=== PATIENT | female | born 1935 | race Caucasian/White ===

== ENCOUNTER 2019-02-25 22:26 | Inpatient (IN) ==
--- OUTSIDE RECORDS SUMMARY | 2019-02-25 22:30 | External Medical Summary | Continuity of Care Document ---
:1935 Author Name Benny Crowder, Provider Address Unavailable Unavailable , Care Team Providers Name Role Phone Unavailable Unavailable Unavailable SAIDA RUCKER Unavailable Unavailable Problems Active medical history not documented Allergies and Adverse Reactions No Known Drug Allergies (Allergy) Medications Aspirin 81 MG TABS , M.D. Refills: 0 Calcium TABS , M.D. Refills: 0 Tenormin TABS , M.D. Refills: 0 Procedures Procedures not documented Immunizations Immunizations not documented Plan of Treatment Planned Observations Planned Goals not documented Results No Known Results Results not documented
[2019-02-25 23:08] LABS: Basophils # (auto) 0.03 K/uL (0-0.2); Basophils % (auto) 0.2 %; Eosinophils # (auto) 0.12 K/uL (0-0.5); Eosinophils % (auto) 0.8 %; Hematocrit (blood only) 36.8 % (37-47); Hemoglobin 12.6 g/dL (12.0-16.0); Immature Granulocytes # (auto) 0.04 K/uL (0.00-0.02); Immature Granulocytes % (auto) 0.3 %; Lymphocytes # (auto) 1.35 K/uL (1.2-3.4); Lymphocytes % (auto) 8.6 %; Mean Corpuscular Hgb Conc 34.2 g/dL (32-36); Mean Corpuscular Volume 87.6 fL (80-100); Mean Platelet Volume 9.8 fL (7.4-10.4); Monocytes # (auto) 1.56 K/uL (0.11-0.59); Neutrophils # (auto) 12.57 K/uL (1.4-6.5); Neutrophils % (auto) 80.1 %; Platelet Count 293 K/uL (130-400); RDW Coefficient of Variation 12.8 % (11.5-14.5); RDW Standard Deviation 41.4 fL (36.4-46.3); White Blood Count 15.67 K/uL (4.8-10.8)
[2019-02-25] MEDS ORDERED: SODIUM CHLORIDE 0.9% 1000ML 1,000 ML IV SCH (23:08)
[2019-02-25 23:19] LABS: INR 1.1 (0.9-1.1); Partial Thromboplastin Time 27.1 Seconds (21.0-31.0)
[2019-02-25 23:29] LABS: Albumin Level 3.3 gm/dl (3.4-5.0); BUN Creatinine Ratio 15.9 (10-20); Calcium 9.6 mg/dl (8.5-10.1); Creatinine Clr Calc Pharmacy 29.4 ml/min; Est GFR (African American) 48.4; Est GFR (Non-African American) 41.8
[2019-02-25 23:39] LABS: Albumin Globulin Ratio 0.6 (0.9-2); Bilirubin,Total 0.7 mg/dl (0.2-1); Globulin 5.6 gm/dl (2.5-4.0); Total Protein 8.9 gm/dl (6.4-8.2)
[2019-02-26] MEDS ORDERED: ASPIRIN 325 MG ECTAB PO STA (00:06)
[2019-02-26 00:10] LABS: Influenza A virus by PCR Neg for Influ A (Neg); Influenza B virus by PCR Neg for Influ B (Neg)
[2019-02-26] MEDS ORDERED: SODIUM CHLORIDE 0.9% 500 ML IV SCH (00:15)
[2019-02-26] MEDS ORDERED: BUMETANIDE 1 MG in SYRINGE 0 ML IV ONE (00:30)
[2019-02-26 00:53] LABS: Magnesium 2.1 mg/dl (1.8-2.4)
--- NOTE | 2019-02-26 01:25 | History & Physical Report ---
Date of Service February 26, 2019 Assessment & Plan (1) Acute hypoxemic respiratory failure: Secondary to acute CHF, possible nonischemic cardiomyopathy secondary to possible viral myocarditis Troponin elevation secondary to above S-A node dysfunction status post PPM, patient NSR Hyperlipidemia statin Rx Hyperglycemia rule out DM PCU Supplemental O2 Diuretic Rx TTE, Cardiology consult RE CHF Strict I/Os Daily weights, CHF education Check hemoglobin A1c DVT prophylaxis. Lovenox subcu Full code Patient son requesting updates from providers. Mr. Alden Botello, contact #[phone]. Total critical care time was 40 minutes. History of Present Illness Chief Complaint: Shortness of breath Primary Care Provider: Trisha Sykes, DO History obtained from patient, family, and records. Medical history significant for SSS sp PPM, hypertension, hyperlipidemia. Recent confinement August 2014 for S-A node dysfunction status post PPM. Patient seen at [facility] [place] [facility] office last October 2018 for exertional dyspnea. Symptoms attributed to possible deconditioning from ankle fracture. No congestion on outpatient CXR. Last 3 days patient noted worsening shortness of breath especially on exertion after a flulike illness. No chest pain, no fluid retention. Patient complaining of dry cough symptoms. Patient brought to the emergency room by son. Medical History as above Surgical History : PPM, eye surgery, dental procedure Family History : Lung disease Personal/Social history : Non-smoker, no EtOH intake, retired RN Allergies Allergy/AdvReac Type Severity Reaction Status Date / Time Estrogens Allergy Unknown UNKNOWN Verified 02/25/19 23:38 Sulfa (Sulfonamide Allergy Unknown UNKNOWN Verified 02/25/19 23:38 Antibiotics) Dyazide AdvReac Severe BP UP, Verified 04/16/18 06:47 ANXIOUS hydrochlorothiazide AdvReac Severe BP UP, Verified 02/25/19 23:38 ANXIOUS triamterene AdvReac Severe BP UP, Verified 02/25/19 23:38 ANXIOUS prednisone AdvReac Unknown LIGHTHEADED,"RUBBERY Verified 02/25/19 23:38 LEGS" Home Medications Home Medications Medication Instructions Recorded Confirmed Type amlodipine 2.5 mg PO DAILY 02/25/19 02/25/19 History aspirin 81 mg PO DAILY 02/25/19 02/25/19 History calcium carbonate-vitamin D3 1 tab PO QAM 02/25/19 02/25/19 History [Caltrate 600 + D] lorazepam 0.5 mg PO HS 02/25/19 02/25/19 History metoprolol tartrate 75 mg PO BID 02/25/19 02/25/19 History multivitamin [Multiple Vitamins] 1 tab PO QAM 02/25/19 02/25/19 History omega 3-ihu-mwl-fish oil [Fish Oil] 1 cap PO DAILY 02/25/19 02/25/19 History omeprazole 20 mg PO QAM 02/25/19 02/25/19 History paroxetine HCl 10 mg PO BID 02/25/19 02/25/19 History potassium chloride 10 meq PO QAM 02/25/19 02/25/19 History rosuvastatin 20 mg PO HS 02/25/19 02/25/19 History Past Med/Surg History Medical History High blood pressure (Chronic) Hypokalemia (Acute) Hypomagnesemia (Acute) Hyponatremia (Acute) New onset atrial flutter (Acute) SSS (sick sinus syndrome) (Acute 08/18/14) Tachy-radha syndrome (Acute) Bronchitis Pacemaker Pneumonia Family History Other No significant family history Social History Communication Ability: Effective Beliefs That Will Affect Care: None Current Living Situation: Alone Other Information That Helps Us Care for You: No Feels Safe at Home: Yes Safety Concerns: Feels Safe At This Time Smoking Status: Never smoker Hx Alcohol Use: No Hx Substance Use: No Review of Systems Review of Systems: As per HPI, all 10 systems reviewed, all other ROS negative Physical Exam Physical Exam: GENERAL: Slightly anxious, minimal respiratory distress SKIN: Normal color, warm HEENT: Bushyhead palpebral conjunctivae, no ptosis, moist buccal mucosa, nasal cannul a in place NECK : Supple, no tenderness CHEST : Decreased breath sounds, bibasilar crackles, no tenderness HEART : RRR, no obvious murmurs ABDOMEN: Some distention, nontender EXTREMITIES : No LE swelling/tenderness, no other conspicuous deformities noted NEUROLOGIC : Coherent, no facial asymmetry, no other gross focality Results & Data Vital Signs (Past 12 Hours) Vital Signs Temp Pulse Pulse Resp BP BP Pulse Ox 02/26/19 00:31 68 16 130/68 97 02/25/19 23:56 88 L 02/25/19 22:49 67 18 92 02/25/19 22:31 36.6 C 80 16 130/76 91 Laboratory Results Laboratory Results WBC 15.67 K/uL (4.8-10.8) H 02/25/19 22:51 RBC 4.20 M/uL (4.2-5.4) 02/25/19 22:51 Hgb 12.6 g/dL (12.0-16.0) 02/25/19 22:51 Hct 36.8 % (37-47) L 02/25/19 22:51 MCV 87.6 fL (80-100) 02/25/19 22: MCH 30.0 pg (25-34) 02/25/19 22: MCHC 34.2 g/dL (32-36) 02/25/19 22:51 RDW Std Deviation 41.4 fL (36.4-46.3) 02/25/19: RDW Coeff of Paz 12.8 % (11.5-14.5) 02/25/19 22: Plt Count 293 K/uL (130-400) 02/25/19 22: MPV 9.8 fL (7.4-10.4) 02/25/19 22:51 Immature Gran % (Auto) 0.3 % 02/25/19 22:51 Neut % (Auto) 80.1 % 02/25/19 22:51 Lymph % (Auto) 8.6 % 02/25/19:51 [place] % (Auto) 10.0 % 02/25/19 22:51 Eos % (Auto) 0.8 % 02/25/19:51 Baso % (Auto) 0.2 % 02/25/19: Immature Gran # (Auto) 0.04 K/uL (0.00-0.02) H 02/25/19 22:51 Neut # (Auto) 12.57 K/uL (1.4-6.5) H 02/25/19 22:51 Lymph # (Auto) 1.35 K/uL (1.2-3.4) 02/25/19 22:51 [place] # (Auto) 1.56 K/uL (0.11-0.59) H 02/25/19 22:51 Eos # (Auto) 0.12 K/uL (0-0.5) 02/25/19:51 Baso # (Auto) 0.03 K/uL (0-0.2) 02/25/19 22:51 ESR 87 mm/hr (0-21) H 02/25/19 22:51 PT 11.0 Seconds (9.0-12.0) 02/25/19 22:51 INR 1.1 (0.9-1.1) 02/25/19 22:51 APTT 27.1 Seconds (21.0-31.0) 02/25/19 22:51 PTT Ratio 1.0 02/25/19 22:51 Sodium 135 mmol/L (136-145) L 02/25/19 22:51 Potassium 4.0 mmol/L (3.5-5.1) 02/25/19 22:51 Chloride 102 mmol/L (98-107) 02/25/19 22:51 Carbon Dioxide 24 mmol/L (21-32) 02/25/19 22:51 8.0 (3-11) 02/25/19 22:51 BUN 19 mg/dl (7-18) H 02/25/19 22:51 1.20 mg/dl (0.6-1.2) 02/25/19 22:51 Est Cr Clr Drug Dosing 29.4 ml/min 02/25/19 22:51 Est GFR ( Amer) 48.4 02/25/19 22:51 Est GFR (Non-Af Amer) 41.8 02/25/19 22:51 15.9 (10-20) 02/25/19 22:51 Glucose 121 mg/dl (70-99) H 02/25/19 22:51 Calcium 9.6 mg/dl (8.5-10.1) 02/25/19 22:51 Magnesium 2.1 mg/dl (1.8-2.4) 02/25/19 22:51 0.7 mg/dl (0.2-1) 02/25/19 22:51 AST 77 U/L (15-37) H 02/25/19 22:51 ALT 44 U/L (12-78) 02/25/19 22:51 143 U/L (45-117) H 02/25/19 22:51 6.220 ng/ml (0-0.045) H* 02/26/19 00:33 NT-Pro-B Natriuret Pep 60797 pg/ml (0-1800) H 02/25/19 22:51 8.9 gm/dl (6.4-8.2) H 02/25/19 22:51 3.3 gm/dl (3.4-5.0) L 02/25/19 22:51 5.6 gm/dl (2.5-4.0) H 02/25/19 22:51 0.6 (0.9-2) L 02/25/19 22:51 0.18 ng/ml (0-0.5) 02/25/19 22:51 TSH 4.620 uIu/ml (0.300-4.500) H 02/25/19 22:51 Influenza Type A (PCR) Neg for Influ A (Neg) 02/25/19 23:15 Influenza Type B (PCR) Neg for Influ B (Neg) 02/25/19 23:15 Diagnostic Findings Chest x-ray as per my interpretation congestion EKG as per my interpretation : Rate 65, NSR, T wave inversion inferior leads, MN WP
[2019-02-26] MEDS ORDERED: ACETAMINOPHEN 325 MG TAB PO PRN (02:31)
[2019-02-26] MEDS ORDERED: NITROGLYCERIN SL 0.4 MG/TAB TAB SL PRN (02:31)
[2019-02-26] MEDS ORDERED: PROMETHAZINE HCL 12.5 MG in SODIUM CHLORIDE 0.9% 50 ML IV PRN (02:31)
[2019-02-26] MEDS ORDERED: TRAMADOL HCL 50 MG TABLET PO PRN (02:31)
--- NOTE | 2019-02-26 03:03 | Emergency Department Note ---
Entered by Saud Burns acting as a scribe for History of Present Illness General Chief complaint: Shortness of Breath/Dyspnea Stated complaint: SOB, FEVER, NO APPETITE Time Seen by Provider: 02/25/19 22:55 Source: patient History of Present Illness Onset (ago): day(s) 2 Location: chest Pain Consistency: + constant Quality: + other (SOB) Associated symptoms: + other (Positive for aches, a dry cough, a fever, nausea, loose stools, and a decreased appetite. Negative for rhinorrhea, congestion, a sore throat, vomiting, and black/bloody stools.) The patient is an 83 year old female who presents to the emergency department with complaints of constant SOB beginning two days ago. The patient states that she had some flu-like symptoms beginning three days ago. She notes that her symptoms included aches, a dry cough, a fever of 100.2, nausea, loose stools, and a decreased appetite. She reports that her symptoms worsened two days ago. The patient states that some of her flu-like symptoms resolved, but she notes that she is now SOB. She notes that her SOB is constant and does not worsen when she lies flat. She reports that she also had some SOB a few months ago that was associated with exertion. She denies any rhinorrhea, congestion, sore throat, vomiting, and black/bloody stools. She also denies any known sick contacts. The patient states that she has a pacemaker, and she notes that she also has a history of pneumonia and bronchitis. She reports that she does not have a history of asthma, and she states that she does not smoke cigarettes. Home Medications Home Medications Medication Instructions Recorded Confirmed Type amlodipine 2.5 mg PO DAILY 02/25/19 02/25/19 History aspirin 81 mg PO DAILY 02/25/19 02/25/19 History calcium carbonate-vitamin D3 1 tab PO QAM 02/25/19 02/25/19 History [Caltrate 600 + D] lorazepam 0.5 mg PO HS 02/25/19 02/25/19 History metoprolol tartrate 75 mg PO BID 02/25/19 02/25/19 History multivitamin [Multiple Vitamins] 1 tab PO QAM 02/25/19 02/25/19 History omega 4-kbe-lui-fish oil [Fish Oil] 1 cap PO DAILY 02/25/19 02/25/19 History omeprazole 20 mg PO QAM 02/25/19 02/25/19 History paroxetine HCl 10 mg PO BID 02/25/19 02/25/19 History potassium chloride 10 meq PO QAM 02/25/19 02/25/19 History rosuvastatin 20 mg PO HS 02/25/19 02/25/19 History Allergies Allergy/AdvReac Type Severity Reaction Status Date / Time Estrogens Allergy Unknown UNKNOWN Verified 02/25/19 23:38 Sulfa (Sulfonamide Allergy Unknown UNKNOWN Verified 02/25/19 23:38 Antibiotics) Dyazide AdvReac Severe BP UP, Verified 04/16/18 06:47 ANXIOUS hydrochlorothiazide AdvReac Severe BP UP, Verified 02/25/19 23:38 ANXIOUS triamterene AdvReac Severe BP UP, Verified 02/25/19 23:38 ANXIOUS prednisone AdvReac Unknown LIGHTHEADED,"RUBBERY Verified 02/25/19 23:38 LEGS" Past Med/Surg History Medical History High blood pressure (Chronic) Hypokalemia (Acute) Hypomagnesemia (Acute) Hyponatremia (Acute) New onset atrial flutter (Acute) SSS (sick sinus syndrome) (Acute 08/18/14) Tachy-radha syndrome (Acute) Bronchitis Pacemaker Pneumonia Family History Other No significant family history Social History Communication Ability: Effective Beliefs That Will Affect Care: None Current Living Situation: Alone Other Information That Helps Us Care for You: No Feels Safe at Home: Yes Safety Concerns: Feels Safe At This Time Smoking Status: Never smoker Hx Alcohol Use: No Hx Substance Use: No Review of Systems See HPI for pertinent positives & negatives. and A total of 10 systems reviewed and were otherwise negative Physical Exam Vital Signs Vital Signs - 24 hr 02/25/19 22:31 02/25/19 22:49 02/25/19 23:56 Temperature 36.6 C Temperature Source Oral Sepsis Recent Fever Within 48 Hours No Sepsis Action Taken by Nursing No Action Required Pulse Rate 80 Pulse Rate [Apical] 67 Pulse Rate from SpO2 Sensor Pulse Rhythm [Apical] Pulse Strength [Apical] Respiratory Rate 16 18 Respiratory Effort / Characteristics Non-Labored Respiratory Depth Normal Blood Pressure 130/76 Blood Pressure [Right Arm] Blood Pressure Mean 94 Blood Pressure Mean [Right Arm] Blood Pressure Position Sitting Pulse Oximetry 91 92 88 L Oxygen Delivery Method Room Air Room Air Room Air Oxygen Flow Rate 02/26/19 00:31 02/26/19 00:32 02/26/19 01:01 Temperature Temperature Source Sepsis Recent Fever Within 48 Hours Sepsis Action Taken by Nursing Pulse Rate 62 70 Pulse Rate [Apical] 68 Pulse Rate from SpO2 Sensor 63 70 Pulse Rhythm [Apical] Regular Pulse Strength [Apical] Normal Respiratory Rate 16 21 34 H Respiratory Effort / Characteristics Non-Labored Spontaneous Respiratory Depth Normal Blood Pressure 130/68 149/70 H Blood Pressure [Right Arm] 130/68 Blood Pressure Mean 88 96 Blood Pressure Mean [Right Arm] 88 Blood Pressure Position Pulse Oximetry 97 95 95 Oxygen Delivery Method Nasal Cannula Nasal Cannula Nasal Cannula Oxygen Flow Rate 2 2 2 GENERAL: alert, well appearing, well nourished, no distress, non-toxic EYE EXAM: normal conjunctiva, PERRL and EOM's grossly intact OROPHARYNX: no exudate, no erythema, lips, buccal mucosa, and tongue normal and mucous membranes are dry NECK: supple, no nuchal rigidity, no adenopathy, non-tender LUNGS: Clear to auscultation. Normal chest wall mechanics. Diminished breath sounds, no wheezes, rhonchi, and rales. HEART: no murmurs, S1 normal and S2 normal ABDOMEN: abdomen soft, non-tender, normo-active bowel sounds, no masses, no rebound or guarding. BACK: Back is symmetrical on inspection and there is no deformity, no midline tenderness, no CVA tenderness. SKIN: no rashes and no bruising UPPER EXTREMITIES: upper extremities are grossly normal. FROM, nml pulses b/l. LOWER EXTREMITIES: No pitting edema. FROM, nml pulses b/l. NEURO EXAM: Normal sensorium, cranial nerves II-XII grossly intact, normal speech, no gross weakness of arms, no gross weakness of legs. Course 2259: The patient was evaluated in room B6. A complete history and physical exam was performed. 2347: I reevaluated and updated the patient. With conversation, her oxygen level dropped to 89% on room air. She was placed on 2L nasal cannula. 0001: Per review of office note from 10/15/2018, the patient had an echo done in November,, and had an LVEF of 55-59% and no significant valvular disease at that time. 0011: Upon reevaluation, the patient is stable. I discussed the findings and the treatment plan with the patient. She expresses agreement and understanding. I spoke with Dr. Quinonez of the [facility]. She will be evaluated for further management. Consultations Consultation #1: I [facility] the [facility] He will evaluate the patient for further management. Time: 00:11 Administered Medications Discontinued Medications Aspirin (Ecotrin) 325 mg PO NOW STA Stop: 02/26/19 00:07 Last Admin: 02/26/19 00:30 Dose: 325 mg Documented by: [id number] Sodium Chloride (Nss 1000ml) 1,000 mls @ 500 mls/hr IV .Q2H LORENZO Stop: 02/26/19 01:07 Last Admin: 02/26/19 00:30 Dose: Not Given Documented by: [id number] Sodium Chloride (Nss) 500 mls @ 80 mls/hr IV .Q6H15M LORENZO Stop: 03/28/19 00:14 Last Admin: 02/26/19 00:31 Dose: Not Given Documented by: [id number] Bumetanide 1 mg/ Syringe 4 mls @ 4 mls/min IV NOW ONE Stop: 02/26/19 00:31 Last Admin: 02/26/19 00:30 Dose: 4 mls/min Documented by: [id number] Medical Decision Making Differential Diagnosis Differential diagnosis: Etiologies such as infections, reactive airway disease, COPD, pneumonia, pleural effusion, pulmonary edema, ARDS, pneumothorax, CHF, cardiac ischemia, cardiac tamponade, dysrhythmia, anemia, pulmonary embolism, musculoskeletal, gastrointestinal process, as well as others were entertained. Medical Records Attestation: I reviewed the patient's medical records. Home Medications Current Medication List: was personally reviewed by me Laboratory Data Attestation: I reviewed the patient's lab results. Result diagrams: 02/25/19 22:51 02/25/19 22:51 Lab Results 02/25/19 02/25/19 02/25/19 Range/Units 22:51 22:51 22:51 WBC 15.67 H (4.8-10.8) K/uL RBC 4.20 (4.2-5.4) M/uL Hgb 12.6 (12.0-16.0) g/dL Hct 36.8 L (37-47) % MCV 87.6 (80-100) fL MCH 30.0 (25-34) pg MCHC 34.2 (32-36) g/dL RDW Std Deviation 41.4 (36.4-46.3) fL RDW Coeff of Paz 12.8 (11.5-14.5) % Plt Count 293 (130-400) K/uL MPV 9.8 (7.4-10.4) fL Immature Gran % (Auto) 0.3 % Neut % (Auto) 80.1 % Lymph % (Auto) 8.6 % [place] % (Auto) 10.0 % Eos % (Auto) 0.8 % Baso % (Auto) 0.2 % Immature Gran # (Auto) 0.04 H (0.00-0.02) K/uL Neut # (Auto) 12.57 H (1.4-6.5) K/uL Lymph # (Auto) 1.35 (1.2-3.4) K/uL [place] # (Auto) 1.56 H (0.11-0.59) K/uL Eos # (Auto) 0.12 (0-0.5) K/uL Baso # (Auto) 0.03 (0-0.2) K/uL ESR (0-21) mm/hr PT 11.0 (9.0-12.0) Seconds INR 1.1 (0.9-1.1) APTT 27.1 (21.0-31.0) Seconds PTT Ratio 1.0 Sodium 135 L (136-145) mmol/L Potassium 4.0 (3.5-5.1) mmol/L Chloride 102 (98-107) mmol/L Carbon Dioxide 24 (21-32) mmol/L Anion Gap 8.0 (3-11) BUN 19 H (7-18) mg/dl Creatinine 1.20 (0.6-1.2) mg/dl Est Cr Clr Drug Dosing 29.4 ml/min Est GFR ( Amer) 48.4 Est GFR (Non-Af Amer) 41.8 BUN/Creatinine Ratio 15.9 (10-20) Glucose 121 H (70-99) mg/dl Calcium 9.6 (8.5-10.1) mg/dl Magnesium 2.1 (1.8-2.4) mg/dl Total Bilirubin 0.7 (0.2-1) mg/dl AST 77 H (15-37) U/L ALT 44 (12-78) U/L Alkaline Phosphatase 143 H (45-117) U/L Troponin I 7.000 H* (0-0.045) ng/ml NT-Pro-B Natriuret Pep 14992 H (0-1800) pg/ml Total Protein 8.9 H (6.4-8.2) gm/dl Albumin 3.3 L (3.4-5.0) gm/dl Globulin 5.6 H (2.5-4.0) gm/dl Albumin/Globulin Ratio 0.6 L (0.9-2) Procalcitonin (0-0.5) ng/ml TSH 4.620 H (0.300-4.500) uIu/ml Influenza Type A (PCR) (Neg) Influenza Type B (PCR) (Neg) 02/25/19 02/25/19 02/25/19 Range/Units 22:51 22:51 23:15 WBC (4.8-10.8) K/uL RBC (4.2-5.4) M/uL Hgb (12.0-16.0) g/dL Hct (37-47) % MCV (80-100) fL MCH (25-34) pg MCHC (32-36) g/dL RDW Std Deviation (36.4-46.3) fL RDW Coeff of Paz (11.5-14.5) % Plt Count (130-400) K/uL MPV (7.4-10.4) fL Immature Gran % (Auto) % Neut % (Auto) % Lymph % (Auto) % [place] % (Auto) % Eos % (Auto) % Baso % (Auto) % Immature Gran # (Auto) (0.00-0.02) K/uL Neut # (Auto) (1.4-6.5) K/uL Lymph # (Auto) (1.2-3.4) K/uL [place] # (Auto) (0.11-0.59) K/uL Eos # (Auto) (0-0.5) K/uL Baso # (Auto) (0-0.2) K/uL ESR 87 H (0-21) mm/hr PT (9.0-12.0) Seconds INR (0.9-1.1) APTT (21.0-31.0) Seconds PTT Ratio Sodium (136-145) mmol/L Potassium (3.5-5.1) mmol/L Chloride (98-107) mmol/L Carbon Dioxide (21-32) mmol/L Anion Gap (3-11) BUN (7-18) mg/dl Creatinine (0.6-1.2) mg/dl Est Cr Clr Drug Dosing ml/min Est GFR ( Amer) Est GFR (Non-Af Amer) BUN/Creatinine Ratio (10-20) Glucose (70-99) mg/dl Calcium (8.5-10.1) mg/dl Magnesium (1.8-2.4) mg/dl Total Bilirubin (0.2-1) mg/dl AST (15-37) U/L ALT (12-78) U/L Alkaline Phosphatase (45-117) U/L Troponin I (0-0.045) ng/ml NT-Pro-B Natriuret Pep (0-1800) pg/ml Total Protein (6.4-8.2) gm/dl Albumin (3.4-5.0) gm/dl Globulin (2.5-4.0) gm/dl Albumin/Globulin Ratio (0.9-2) Procalcitonin 0.18 (0-0.5) ng/ml TSH (0.300-4.500) uIu/ml Influenza Type A (PCR) Neg for Influ A (Neg) Influenza Type B (PCR) Neg for Influ B (Neg) 02/26/19 Range/Units 00:33 WBC (4.8-10.8) K/uL RBC (4.2-5.4) M/uL Hgb (12.0-16.0) g/dL Hct (37-47) % MCV (80-100) fL MCH (25-34) pg MCHC (32-36) g/dL RDW Std Deviation (36.4-46.3) fL RDW Coeff of Paz (11.5-14.5) % Plt Count (130-400) K/uL MPV (7.4-10.4) fL Immature Gran % (Auto) % Neut % (Auto) % Lymph % (Auto) % [place] % (Auto) % Eos % (Auto) % Baso % (Auto) % Immature Gran # (Auto) (0.00-0.02) K/uL Neut # (Auto) (1.4-6.5) K/uL Lymph # (Auto) (1.2-3.4) K/uL [place] # (Auto) (0.11-0.59) K/uL Eos # (Auto) (0-0.5) K/uL Baso # (Auto) (0-0.2) K/uL ESR (0-21) mm/hr PT (9.0-12.0) Seconds INR (0.9-1.1) APTT (21.0-31.0) Seconds PTT Ratio Sodium (136-145) mmol/L Potassium (3.5-5.1) mmol/L Chloride (98-107) mmol/L Carbon Dioxide (21-32) mmol/L Anion Gap (3-11) BUN (7-18) mg/dl Creatinine (0.6-1.2) mg/dl Est Cr Clr Drug Dosing ml/min Est GFR ( Amer) Est GFR (Non-Af Amer) BUN/Creatinine Ratio (10-20) Glucose (70-99) mg/dl Calcium (8.5-10.1) mg/dl Magnesium (1.8-2.4) mg/dl Total Bilirubin (0.2-1) mg/dl AST (15-37) U/L ALT (12-78) U/L Alkaline Phosphatase (45-117) U/L Troponin I 6.220 H* (0-0.045) ng/ml NT-Pro-B Natriuret Pep (0-1800) pg/ml Total Protein (6.4-8.2) gm/dl Albumin (3.4-5.0) gm/dl Globulin (2.5-4.0) gm/dl Albumin/Globulin Ratio (0.9-2) Procalcitonin (0-0.5) ng/ml TSH (0.300-4.500) uIu/ml Influenza Type A (PCR) (Neg) Influenza Type B (PCR) (Neg) Imaging Data Attestation: I personally reviewed and interpreted this imaging study as follows: My Impression: SINGLE VIEW CHEST X-RAY: No cardiomegaly. No effusions. Pacemaker noted. Mildly increased interstitial markings bilaterally. No wide mediastinum. ECG Data Attestation: I personally reviewed and interpreted this ECG as follows: Indication: SOB/dyspnea Rate (beats per minute): 66 Rhythm: sinus rhythm Findings: + 1st degree AV block and + T-wave inversion (in 3 and AVF) Comparison ECG Date: from (08/20/2014) Change: the following changes noted (Compared to prior, T wave inversions are new.) Additional Comments: Normal axis, normal QRS/QTC, baseline artifact noted, no other acute ischemic change. EKG #2: Sinus rhythm, 64, 1st degree AV block, normal axis, normal QRS/QTC, T wave inversion in 3 and AVF. Blood Pressure Blood Pressure Findings: Normal blood pressure Blood Pressure Disposition: did not require urgent referral MDM Narrative Patient presenting here with symptoms suggestive of upper respiratory infection recently and worsening dyspnea. Patient with prior cardiac history although no prior known CAD. Chest x-ray suggestive of possible early congestive heart failure, and patient found to have a troponin of 7. No prior history of elevated troponins, no chronic kidney disease. Physical exam not suggestive of acute pulmonary edema/CHF. No prior documented history of CHF. EKG did show new T wave inversions inferiorly, however last EKG for comparison was 5 years prior. Patient denies any recent or current chest pain, pressure, or discomfort . Prior cardiology notes revealed an echo as of one year ago had a reassuring ejection fraction. Patient felt her breathing was improved while here at rest, however with prolonged conversation her oxygen level did drop slightly so she was placed on 2 L of oxygen via nasal cannula. Patient otherwise hemodynamically stable. I did discuss all results with her and son at bedside and they were in agreement with plan for additional evaluation and treatment as an inpatient. Case discussed with hospitalist. Hospitalist would prefer to see and evaluate the patient first before contacting cardiology. Patient was given an aspirin. Patient with no risk factors for endocarditis. Presentation and recent history of symptoms not highly suggestive of pericarditis/myocarditis. No evidence of bacteremia/sepsis at this time. Procalcitonin negative. Leukocytosis possibly reactive to cardiac event. Serial EKGs did not reveal dynamic changes or STEMI. Impression & Plan Dyspnea, Non-ST elevation MS (NSTEMI), Hypoxia, Elevated brain natriuretic peptide (BNP) level Critical Care Time I have personally spent 35 minutes of critical care time in the direct management of this patient. This includes bedside care, interpretation of diagnostic studies, and testing, discussion with consultants, patient, and family members, and other required patient management activities. This 35 minutes is in excess of all separately billable procedures. Critical Care Time: Yes Total Critical Care Time: 35 Discharge Plan Visit Data *Final* Discharge Date/Time: 02/26/19 02:08 Chief Complaint: Shortness of Breath/Dyspnea Stated Complaint: SOB, FEVER, NO APPETITE ED Provider: Fariha Garcia Discharge Problem: Dyspnea, Non-ST elevation MS (NSTEMI), Hypoxia, Elevated brain natriuretic peptide (BNP) level Patient Disposition: Admitted As Inpatient Discharge Instructions Interventions: ED Discharge Assessment Last Done: 02/26/19 02:08 Discharge Problem: Dyspnea Qualifiers: Dyspnea type: unspecified Qualified Code(s): R06.00 - Dyspnea, unspecified The scribe's documentation has been prepared under my direction and personally reviewed by me in its entirety. I confirm that the note above accurately reflects all work, treatment, procedures, and medical decision making performed by me.
--- NOTE | 2019-02-26 06:19 | XRay Report ---
XR chest 1V portable HISTORY: 83 years-old Female shortness of breath acute shortness of breath COMPARISON: Chest radiograph 08/21/2014 TECHNIQUE: Portable AP view of the chest FINDINGS: Cardiac silhouette is mildly enlarged, unchanged. Calcification of the thoracic aortic arch. Left sub clavian pacer appears unchanged. Mild interstitial coarsening. Mild pulmonary vascular congestion. No pneumothorax. Suggestion of trace pleural effusions. Bibasilar opacities are noted. Degenerative zoya nges of the shoulders and spine. IMPRESSION: 1. Cardiomegaly with suggestion of mild pulmonary edema. 2. Trace pleural effusions with bibasilar opacities suggestive of atelectasis or pneumonitis. The above report was generated using voice recognition software. It may contain grammatical, syntax o r spelling errors. Electronically signed by: Sha Kent M.D. 02/26/2019 6:18 AM
[2019-02-26 06:20] LABS: Estimated Average Glucose 114 mg/dl
[2019-02-26 06:37] LABS: Basophils # (auto) 0.02 K/uL (0-0.2); Basophils % (auto) 0.2 %; Eosinophils # (auto) 0.02 K/uL (0-0.5); Eosinophils % (auto) 0.2 %; Hematocrit (blood only) 35.4 % (37-47); Immature Granulocytes # (auto) 0.03 K/uL (0.00-0.02); Immature Granulocytes % (auto) 0.2 %; Lymphocytes # (auto) 1.87 K/uL (1.2-3.4); Lymphocytes % (auto) 14.8 %; Mean Corpuscular Hgb Conc 33.9 g/dL (32-36); Mean Corpuscular Volume 87.6 fL (80-100); Mean Platelet Volume 9.8 fL (7.4-10.4); Monocytes # (auto) 1.25 K/uL (0.11-0.59); Monocytes % (auto) 9.9 %; Neutrophils # (auto) 9.41 K/uL (1.4-6.5); Neutrophils % (auto) 74.7 %; Platelet Count 287 K/uL (130-400); RDW Coefficient of Variation 12.8 % (11.5-14.5); RDW Standard Deviation 41.5 fL (36.4-46.3); Red Blood Count 4.04 M/uL (4.2-5.4)
[2019-02-26 07:03] LABS: BUN Creatinine Ratio 17.7 (10-20); Calcium 9.3 mg/dl (8.5-10.1); Creatinine Clr Calc Pharmacy 33.6 ml/min; Est GFR (African American) 56.9; Est GFR (Non-African American) 49.1; Potassium 4.2 mmol/L (3.5-5.1)
[2019-02-26] MEDS ORDERED: ALBUT/IPRATROP 3MG/0.5MG NEB 3 ML VIAL NEB STA (07:15)
[2019-02-26] MEDS ORDERED: MULTIVITAMIN TAB PO SCH (09:00)
[2019-02-26] MEDS ORDERED: ASPIRIN 81 MG ECTAB PO SCH (09:00)
[2019-02-26] MEDS ORDERED: FUROSEMIDE 40 MG in SYRINGE 0 ML IV ONE (09:00)
[2019-02-26] MEDS ORDERED: ENOXAPARIN INJ 30 MG/0.3 ML SYR SQ SCH (09:00)
[2019-02-26] MEDS ORDERED: PARoxetine HCl 20 MG TAB PO SCH (09:00)
[2019-02-26] MEDS ORDERED: AMLODIPINE BESYLATE 5 MG TAB PO SCH (09:00)
[2019-02-26] MEDS ORDERED: PANTOprazole 40 MG TAB PO SCH (09:00)
[2019-02-26] MEDS ORDERED: POTASSIUM CHLORIDE 20 MEQ TABCR PO SCH (09:00)
[2019-02-26] MEDS ORDERED: METOPROLOL TARTRATE 50 MG TAB PO SCH (09:00)
[2019-02-26] MEDS ORDERED: SODIUM CHLORIDE 0.9% 1000ML 1,000 ML IV SCH (09:45)
[2019-02-26] MEDS ORDERED: HEPARIN (PORCINE) 1000 UNIT/ML 10 ML (CATH LAB USE ONLY) ONE (10:09)
[2019-02-26] MEDS ORDERED: fentaNYL citrate 100 MCG/2 ML VIAL ONE (10:09)
[2019-02-26] MEDS ORDERED: NITROGLYCERIN/D5W 100MCG/ML 20ML SYR ONE (10:09)
[2019-02-26] MEDS ORDERED: NiCARDipine HCL INJ 2.5 MG/ML 10 ML AMP ONE (10:09)
[2019-02-26] MEDS ORDERED: MIDAZOLAM HCL 1 MG/ML 2ML VIAL ONE (10:09)
--- NOTE | 2019-02-26 10:39 | Pre Anesthesia Assessment ---
Date of Service February 26, 2019 Pre Sedation Assessment Vital Signs Temp Pulse Pulse Resp BP BP Pulse Ox 02/26/19 07:23 36.4 C L 67 18 119/74 97 02/26/19 02:20 36.5 C 75 24 159/79 H 96 02/26/19 02:01 60 19 108/69 96 02/26/19 01:01 70 34 H 149/70 H 95 02/26/19 00:32 62 21 130/68 95 02/26/19 00:31 68 16 130/68 97 02/25/19 23:56 88 L 02/25/19 22:49 67 18 92 02/25/19 22:31 36.6 C 80 16 130/76 91 Cardiovascular RRR, no murmur, no edema Respiratory normal respiratory effort, lungs clear to auscultation Pre-Sedation Airway Assessment Smoking Status: Never smoker Mallampati Class: II NPO Status Date of Last Intake of Fluids: 02/25/19 Date of Last Intake of Solid Food: 02/25/19 Procedure Planning Contraindications for Sedation: none Current Medications Reviewed: Yes Notes The planned sedation has been discussed with the patient. Informed Consent was obtained. I have identified the patient, determined the appropriateness of sedation and have assessed the patient immediately prior to the procedure. All medicine(s) and interventions are by my order.
--- NOTE | 2019-02-26 10:54 | Hospitalist Progress Note ---
Date of Service February 26, 2019 Assessment & Plan (1) Acute hypoxemic respiratory failure: CXR suggestive of mild pulmonary edema SaO2 97% on RA -Received a dose of IV Bumetanide 1 mg -No more doses for now NSTEMI Presenting with progressively worsening exertional dyspnea Troponin elevation up to 7, trending down to 6.220 EKG shows T wave inversion in lead III, AVF Echo today shows moderately reduced left ventricular systolic function with EF 35 to 40%, diffuse moderate hypokinesis to all wall segments with exception of basal inferolateral wall, grade 1 diastolic dysfunction, aortic valve sclerosis mild, mild MR -For cardiac cath today -Continue with aspirin 81 mg, Crestor 20 mg nightly, Lopressor 50 mg twice daily -Appreciate cardiology inputs -Work up- HBA1C 5.6, Lipid panel in AM History of SA node dysfunction status post pacemaker placement Pacemaker interrogation ordered-A fib noted Hyperlipidemia -Continue with statin Rx DVT prophylaxis. Lovenox subcu Full code Disposition For cardiac catheterization today. Medical management in progress Patient son requesting updates from providers. Updated sons by bedside today Mr. Alden Botello, contact #[phone]. Discussed case with cardiology Subjective Patient comes in for progressively worsening exertional shortness of breath to the extent that she is unable to walk few steps without getting short of breath. Denies any chest pain, nausea, vomiting, sweating, palpitations, fever, chills, cough. Denies any leg swelling. Telemetryno events Physical Exam Physical Exam: GENERAL- AAOX3, No acute distress NECK- Supple, no JVD LUNGS- Air entry bilaterally equal. No rales, rhonchi, crackles, wheezes heard. HEART- Regular rate and rhythm. No murmurs ABDOMEN- Soft, non tender, non distended, Bowel sounds heard. EXTREMITIES- Good peripheral pulses, no edema Results & Data Vital Signs (Past 12 Hours) Vital Signs Temp Pulse Pulse Resp BP BP Pulse Ox 02/26/19 07:23 36.4 C L 67 18 119/74 97 02/26/19 02:20 36.5 C 75 24 159/79 H 96 02/26/19 02:01 60 19 108/69 96 02/26/19 01:01 70 34 H 149/70 H 95 02/26/19 00:32 62 21 130/68 95 02/26/19 00:31 68 16 130/68 97 02/25/19 23:56 88 L 02/25/19 22:49 67 18 92
--- NOTE | 2019-02-26 11:33 | Cardiac Catheterization ---
Cardiac Cath Procedure: Brief Procedure Date February 26, 2019 Pre-Procedure Diagnosis Pre-Procedure Diagnosis: Non STEMI and CHF AUC Score AUC Score: 9 Post-Procedure Diagnosis Post-Procedure Diagnosis: Severe CAD Procedure(s) Performed Procedure(s) Performed: Coronary Angiography, Left Heart Cath and LV Angiography Cyber Systems Administrator Chaparro Mo MD Medical Billing Supervisor(s) Lavon Stewart Estimated Blood Loss Estimated Blood Loss: <15cc Medication(s) Medication(s): Fentanyl (12.5 mcg IV), Heparin (5000 units IV), Lidocaine 1% (Local infiltration access site) and Nicardipine (250 mcg intra-arterial after arterial sheath insertion) Preliminary Findings Right dominant coronary anatomy Left main ostial narrowing of 70% with pressure damping on engagement Left anterior descending: Type III 100% mid vessel occlusion question chronic total occlusion Left circumflex: Nondominant but large with large obtuse marginal. Circumflex has a 50% proximal third Right coronary artery: Dominant, large vessel with 99% mid vessel stenosis, 5060% origin posterior descending artery LV angiography: Apical akinesis, severe hypokinesis mid inferior wall EF 35% no mitral insufficiency LVEDP 20 Recommendations Recommendations: Management Recommendatons (Transfer to tertiary service for further evaluation groin bypass graft versus high risk intervention) Specimens Specimens: None Fluids (cc crystalloids) Fluids (cc crystalloids): 50 Anesthesia Start time: 1054, stop time: 1118 Procedural Complication(s) None Disposition PCU
--- NOTE | 2019-02-26 11:40 | Cardiology Consultation ---
Date of Consultation February 26, 2019 Assessment & Plan (1) Acute systolic CHF (congestive heart failure): Patient presented with subacute onset congestive heart failure symptoms initiating 3 to 4 days prior to presentation. Patient echocardiogram and cardiac enzymes reflect acute ischemic origin with systolic dysfunction. Patient responded promptly to IV diuretics with improvement in symptoms and patient was referred for diagnostic cardiac catheterization as above demonstrating multivessel coronary disease, including left main, LV dysfunction Plan continue IV heparin, arrangements were made for transfer to [facility] for further surgical and interventional evaluation. Patient currently hemodynamically stable and asymptomatic Present on Admission?: Yes (2) Coronary artery disease involving left main coronary artery: As above (3) SSS (sick sinus syndrome): (4) High blood pressure: History of Present Illness Reason for Consultation: Congestive heart failure, new wall motion normality Requesting Physician: Dr. Davis Attending Physician: Tamy Davis History of Present Illness Patient is an 83-year-old female with past medical history of hypertension hyper lipidemia, sick sinus syndrome status post dual-chamber pacemaker insertion 2013. Patient presents this admission noting having felt poorly for several days noting possible febrile illness over the weekend past. Notes was relatively active past Saturday but Saturday felt mildly febrile and acute malaise. Has not felt well since and presented last night with worsening shortness of breath and orthopnea. Chest x-ray demonstrated evidence of congestive heart failure EKGs new Q waves anterior with T wave inversion inferior leads. Initial troponin elevated at 7.0. Patient responded promptly to a single dose of IV diuretics was much more comfortable this morning no chest pain or discomfort overnight. No tachypalpitations. Notes no nausea vomiting diarrhea melena hematochezia. Appetite and weight are generally stable. She is active appropriate to age. Notes no claudication symptoms. No history of TIA or stroke. Patient is not diabetic Echocardiogram this morning demonstrated septal and apical akinesis with diffuse hypokinesis otherwise EF 35 to 40% Allergies Allergy/AdvReac Type Severity Reaction Status Date / Time Estrogens Allergy Unknown UNKNOWN Verified 02/25/19 23:38 Sulfa (Sulfonamide Allergy Unknown UNKNOWN Verified 02/25/19 23:38 Antibiotics) Dyazide AdvReac Severe BP UP, Verified 04/16/18 06:47 ANXIOUS hydrochlorothiazide AdvReac Severe BP UP, Verified 02/25/19 23:38 ANXIOUS triamterene AdvReac Severe BP UP, Verified 02/25/19 23:38 ANXIOUS prednisone AdvReac Unknown LIGHTHEADED,"RUBBERY Verified 02/25/19 23:38 LEGS" Home Medications Home Medications Medication Instructions Recorded Confirmed Type amlodipine 2.5 mg PO DAILY 02/25/19 02/25/19 History aspirin 81 mg PO DAILY 02/25/19 02/25/19 History calcium carbonate-vitamin D3 1 tab PO QAM 02/25/19 02/25/19 History [Caltrate 600 + D] lorazepam 0.5 mg PO HS 02/25/19 02/25/19 History metoprolol tartrate 75 mg PO BID 02/25/19 02/25/19 History multivitamin [Multiple Vitamins] 1 tab PO QAM 02/25/19 02/25/19 History omega 7-[id number]-fish oil [Fish Oil] 1 cap PO DAILY 02/25/19 02/25/19 History omeprazole 20 mg PO QAM 02/25/19 02/25/19 History paroxetine HCl 10 mg PO BID 02/25/19 02/25/19 History potassium chloride 10 meq PO QAM 02/25/19 02/25/19 History rosuvastatin 20 mg PO HS 02/25/19 02/25/19 History Patient History Medical History High blood pressure (Chronic) Hypokalemia (Acute) Hypomagnesemia (Acute) Hyponatremia (Acute) New onset atrial flutter (Acute) SSS (sick sinus syndrome) (Acute 08/18/14) Tachy-radha syndrome (Acute) Bronchitis Pacemaker Pneumonia Family History Other No significant family history Social History Communication Ability: Effective Beliefs That Will Affect Care: None Current Living Situation: Alone Other Information That Helps Us Care for You: No Feels Safe at Home: Yes Safety Concerns: Feels Safe At This Time Smoking Status: Never smoker Hx Alcohol Use: No Hx Substance Use: No Review of Systems Review of Systems: As per HPI Physical Exam Constitutional: WD/WN, vitals as above no acute distress Eyes: PERRL, conjunctivae normal, anicteric sclerae ENMT: external ear and nose normal, oropharynx normal Neck: Thin no audible bruit no jugular venous distention Respiratory: Minimal crackles left base but otherwise clear Cardiovascular: Rate/Rhythm: regular rate and regular rhythm Heart Sounds: normal S1 and normal S2; no gallop and no murmur Vessels: normal carotid upstroke and radial pulses present; no JVD Extremities: no edema Results & Data Vital Signs (Past 12 Hours) Vital Signs Temp Pulse Pulse Resp BP BP Pulse Ox 02/26/19 07:23 36.4 C L 67 18 119/74 97 02/26/19 02:20 36.5 C 75 24 159/79 H 96 02/26/19 02:01 60 19 108/69 96 02/26/19 01:01 70 34 H 149/70 H 95 02/26/19 00:32 62 21 130/68 95 02/26/19 00:31 68 16 130/68 97 02/25/19 23:56 88 L Laboratory Results Laboratory Results - last 24 hr 02/25/19 02/25/19 02/25/19 22:51 22:51 22:51 WBC 15.67 H RBC 4.20 Hgb 12.6 Hct 36.8 L MCV 87.6 MCH 30.0 MCHC 34.2 RDW Std Deviation 41.4 RDW Coeff of Paz 12.8 Plt Count 293 MPV 9.8 Immature Gran % (Auto) 0.3 Neut % (Auto) 80.1 Lymph % (Auto) 8.6 Garrard % (Auto) 10.0 Eos % (Auto) 0.8 Baso % (Auto) 0.2 Immature Gran # (Auto) 0.04 H Neut # (Auto) 12.57 H Lymph # (Auto) 1.35 Garrard # (Auto) 1.56 H Eos # (Auto) 0.12 Baso # (Auto) 0.03 ESR PT 11.0 INR 1.1 APTT 27.1 PTT Ratio 1.0 Sodium 135 L Potassium 4.0 Chloride 102 Carbon Dioxide 24 Anion Gap 8.0 BUN 19 H Creatinine 1.20 Est Cr Clr Drug Dosing 29.4 Est GFR ( Amer) 48.4 Est GFR (Non-Af Amer) 41.8 BUN/Creatinine Ratio 15.9 Glucose 121 H Estimat Average Glucose Hemoglobin A1c Calcium 9.6 Magnesium 2.1 Total Bilirubin 0.7 AST 77 H ALT 44 Alkaline Phosphatase 143 H Troponin I 7.000 H* NT-Pro-B Natriuret Pep 73129 H Total Protein 8.9 H Albumin 3.3 L Globulin 5.6 H Albumin/Globulin Ratio 0.6 L Procalcitonin TSH 4.620 H Influenza Type A (PCR) Influenza Type B (PCR) 02/25/19 02/25/19 02/25/19 22:51 22:51 22:51 WBC RBC Hgb Hct MCV MCH MCHC RDW Std Deviation RDW Coeff of Paz Plt Count MPV Immature Gran % (Auto) Neut % (Auto) Lymph % (Auto) Garrard % (Auto) Eos % (Auto) Baso % (Auto) Immature Gran # (Auto) Neut # (Auto) Lymph # (Auto) Garrard # (Auto) Eos # (Auto) Baso # (Auto) ESR 87 H PT INR APTT PTT Ratio Sodium Potassium Chloride Carbon Dioxide Anion Gap BUN Creatinine Est Cr Clr Drug Dosing Est GFR ( Amer) Est GFR (Non-Af Amer) BUN/Creatinine Ratio Glucose Estimat Average Glucose 114 Hemoglobin A1c 5.6 Calcium Magnesium Total Bilirubin AST ALT Alkaline Phosphatase Troponin I NT-Pro-B Natriuret Pep Total Protein Albumin Globulin Albumin/Globulin Ratio Procalcitonin 0.18 TSH Influenza Type A (PCR) Influenza Type B (PCR) 02/25/19 02/26/19 02/26/19 23:15 00:33 05:58 WBC 12.60 H RBC 4.04 L Hgb 12.0 Hct 35.4 L MCV 87.6 MCH 29.7 MCHC 33.9 RDW Std Deviation 41.5 RDW Coeff of Paz 12.8 Plt Count 287 MPV 9.8 Immature Gran % (Auto) 0.2 Neut % (Auto) 74.7 Lymph % (Auto) 14.8 Garrard % (Auto) 9.9 Eos % (Auto) 0.2 Baso % (Auto) 0.2 Immature Gran # (Auto) 0.03 H Neut # (Auto) 9.41 H Lymph # (Auto) 1.87 Garrard # (Auto) 1.25 H Eos # (Auto) 0.02 Baso # (Auto) 0.02 ESR PT INR APTT PTT Ratio Sodium Potassium Chloride Carbon Dioxide Anion Gap BUN Creatinine Est Cr Clr Drug Dosing Est GFR ( Amer) Est GFR (Non-Af Amer) BUN/Creatinine Ratio Glucose Estimat Average Glucose Hemoglobin A1c Calcium Magnesium Total Bilirubin AST ALT Alkaline Phosphatase Troponin I 6.220 H* NT-Pro-B Natriuret Pep Total Protein Albumin Globulin Albumin/Globulin Ratio Procalcitonin TSH Influenza Type A (PCR) Neg for Influ A Influenza Type B (PCR) Neg for Influ B 02/26/19 05:58 WBC RBC Hgb Hct MCV MCH MCHC RDW Std Deviation RDW Coeff of Paz Plt Count MPV Immature Gran % (Auto) Neut % (Auto) Lymph % (Auto) Garrard % (Auto) Eos % (Auto) Baso % (Auto) Immature Gran # (Auto) Neut # (Auto) Lymph # (Auto) Garrard # (Auto) Eos # (Auto) Baso # (Auto) ESR PT INR APTT PTT Ratio Sodium 135 L Potassium 4.2 Chloride 101 Carbon Dioxide 27 Anion Gap 7.0 BUN 19 H Creatinine 1.05 Est Cr Clr Drug Dosing 33.6 Est GFR ( Amer) 56.9 Est GFR (Non-Af Amer) 49.1 BUN/Creatinine Ratio 17.7 Glucose 107 H Estimat Average Glucose Hemoglobin A1c Calcium 9.3 Magnesium Total Bilirubin AST ALT Alkaline Phosphatase Troponin I NT-Pro-B Natriuret Pep Total Protein Albumin Globulin Albumin/Globulin Ratio Procalcitonin TSH Influenza Type A (PCR) Influenza Type B (PCR) Diagnostic Findings Cardiac catheterization 02/26/2019 Preliminary Findings Right dominant coronary anatomy Left main ostial narrowing of 70% with pressure damping on engagement Left anterior descending: Type III 100% mid vessel occlusion question chronic total occlusion Left circumflex: Nondominant but large with large obtuse marginal. Circumflex has a 50% proximal third Right coronary artery: Dominant, large vessel with 99% mid vessel stenosis, 5060% origin posterior descending artery LV angiography: Apical akinesis, severe hypokinesis mid inferior wall EF 35% no mitral insufficiency LVEDP 20 ECG Additional Comments: 25-FEB-2019 22:44:12 [facility]-EDSTAT ROUTINE RETRIEVAL Poor data quality, interpretation may be adversely affected Sinus rhythm with 1st degree A-V block Inferior infarct , age undetermined Cannot rule out Anterior infarct , age undetermined Abnormal ECG When compared with ECG of 20-AUG-2014 16:10, Significant changes have occurred
--- NOTE | 2019-02-26 12:02 | Discharge Summary ---
Date of Service February 26, 2019 Admission HPI Per Admitting Provider History obtained from patient, family, and records. Medical history significant for SSS sp PPM, hypertension, hyperlipidemia. Recent confinement August 2014 for S-A node dysfunction status post PPM. Patient seen at [facility] Cardiology office last October 2018 for exertional dyspnea. Symptoms attributed to possible deconditioning from ankle fracture. No congestion on outpatient CXR. Last 3 days patient noted worsening shortness of breath especially on exertion after a flulike illness. No chest pain, no fluid retention. Patient complaining of dry cough symptoms. Patient brought to the emergency room by son. Medical History as above Surgical History : PPM, eye surgery, dental procedure Family History : Lung disease Personal/Social history : Non-smoker, no EtOH intake, retired RN Principal Diagnosis 1. NSTEMI 2. Status post cardiac catheterizationsevere CAD 3. New onset ischemic cardiomyopathy 4. Acute hypoxic respiratory failure secondary to mild pulmonary congestion Secondary diagnoses on discharge 1. SA josé miguel dysfunction with pacemaker in situ 2. Hyperlipidemia Discharge Exam GENERAL- AAOX3, No acute distress NECK- Supple, no JVD LUNGS- Air entry bilaterally equal. No rales, rhonchi, crackles, wheezes heard. HEART- Regular rate and rhythm. No murmurs ABDOMEN- Soft, non tender, non distended, Bowel sounds heard. EXTREMITIES- Good peripheral pulses, no edema. Status post cardiac catheterization Discharge Data Allergies Allergy/AdvReac Type Severity Reaction Status Date / Time Estrogens Allergy Unknown UNKNOWN Verified 02/25/19 23:38 Sulfa (Sulfonamide Allergy Unknown UNKNOWN Verified 02/25/19 23:38 Antibiotics) Dyazide AdvReac Severe BP UP, Verified 04/16/18 06:47 ANXIOUS hydrochlorothiazide AdvReac Severe BP UP, Verified 02/25/19 23:38 ANXIOUS triamterene AdvReac Severe BP UP, Verified 02/25/19 23:38 ANXIOUS prednisone AdvReac Unknown LIGHTHEADED,"RUBBERY Verified 02/25/19 23:38 LEGS" Consultations 02/26/19 00:15 ED Decision to Admit Stat 02/26/19 02:31 Consult Cardiology Routine Procedures Performed Operation Date: 02/26/19 11:00 <No data on this case meets the specified criteria> Ordered Studies 02/26/19 10:09 CL Cath Imgs for PACS use only Routine Hospital Course (1) Acute hypoxemic respiratory failure: CXR suggestive of mild pulmonary edema SaO2 97% on RA -Received a dose of IV Bumetanide 1 mg -No more doses for now NSTEMI NEW ONSET ISCHEMIC CARDIOMYOPATHY Presented with progressively worsening exertional dyspnea Troponin elevation up to 7, trending down to 6.220 EKG shows T wave inversion in lead III, AVF, Q waves in inferior leads Echo today shows moderately reduced left ventricular systolic function with EF 35 to 40%, diffuse moderate hypokinesis to all wall segments with exception of basal inferolateral wall, grade 1 diastolic dysfunction, aortic valve sclerosis mild, mild MR -S/P Cardiac cath today- Lt Main Ostial Narrowing- 70%, LAD- 100% mid vessel occlusion question chronic total occlusion, left circumflex 50% proximal third, right coronary artery dominant large vessel with 99% mid vessel stenosis, 50 to 60% origin posterior descending artery -Continue with aspirin 81 mg, Crestor 20 mg nightly, Lopressor 50 mg twice daily -Appreciate cardiology inputs -Work up- HBA1C 5.6, Lipid panel in AM PLAN: Transfer to [facility] for high risk intervention. Dr. Mo spoke to cardiology Dr. he knows who has accepted the patient. History of SA node dysfunction status post pacemaker placement Pacemaker interrogation ordered-A fib noted Hyperlipidemia -Continue with statin Rx DVT prophylaxis. Lovenox subcu Full code Disposition Transfer to higher level of care= [place] for high risk coronary intervention Accepting corrugated sheet material sheeter- Dr Dean. Dr Mo discussed case with them Updated family by bedside. Arrangements to be made for transfer. Discussed case with cardiology Total Time Total Time Spent Total Time Spent (In Minutes): 45 minutes Discharge Plan Discharge Items Patient Disposition: Transfer Acute Care Hospital Reason For Visit: CHF Discharge Diagnosis: NSTEMI with triple vessel coronary disease New onset Ischemic cardiomyopathy Discharge Goals: Improve disease control and Therapeutic intervention Activity: As commented below Activity Comment: Bed rest Lifting: No more than 10 pounds Non-emergency contact: Primary Care Provider and Hydroponics Worker Call non-emergency contact if: your symptoms worsen Follow-up/Referrals: Trisha Sykes DO [Primary Care Provider] - Diet: Heart Healthy and Low Sodium (2gm) Addtl Provider Instructions: Transfer to Higher level of care Prescriptions: Continued multivitamin [Multiple Vitamins] Tablet 1 tab PO QAM RF: 0 potassium chloride 10 mEq Tablet Extended Release 10 meq PO QAM RF: 0 amlodipine 5 mg Tablet 2.5 mg PO DAILY RF: 0 aspirin 81 mg Tablet,Delayed Release (Dr/Ec) 81 mg PO DAILY RF: 0 lorazepam 0.5 mg Tablet 0.5 mg PO HS RF: 0 paroxetine HCl 20 mg Tablet 10 mg PO BID RF: 0 metoprolol tartrate 50 mg Tablet 75 mg PO BID RF: 0 rosuvastatin 20 mg tablet 20 mg PO HS RF: 0 omeprazole 20 mg Tablet,Delayed Release (Dr/Ec) 20 mg PO QAM RF: 0 omega 7-[id number]-fish oil [Fish Oil] 1,000 mg (120 mg-180 mg) Capsule 1 cap PO DAILY RF: 0 Caltrate 600 + D 600 mg (1,500 mg)-800 unit Tablet,Chewable 1 tab PO QAM RF: 0 Stand-Alone Forms: [facility] Discharge Orders: Discharge Order (Routine); Ordered 02/26/19 Ordered By: Tamy Davis Admission Data Admit Date/Time: 02/26/19 01:27 Attending Provider: Tamy Davis Admit Provider: Lj Quinonez Primary Care Provider: Trisha Sykes Other Providers: Lj Quinonez ; Chaparro Mo Service: Telemetry
[2019-02-26] MEDS ORDERED: Heparin IV Low Dose *NO* Bolus IV SCH (12:15)
[2019-02-26] MEDS ORDERED: HEPARIN SODIUM/DEXTROSE 25,000 UNITS/500 ML BAG IV SCH (12:15)
[2019-02-26] MEDS ORDERED: ROSUVASTATIN CALCIUM 20 MG TAB PO SCH (21:00)
[2019-02-26] MEDS ORDERED: LORazepam 0.5 MG TAB PO SCH (21:00)
== END 2019-02-26 15:50 | disposition short-term general hospital (02) | DRG 280 ==
LOC: ED 22:26 → 2S 02-26 01:27